=== PATIENT | female | born 1980 | race Caucasian/White ===

== ENCOUNTER 2018-03-28 22:34 | Emergency (ER) | payer SELFPAY ==
[~2018-03-28] VITALS: Ht 170.2 cm; Wt 60.7 kg
[2018-03-29 00:58] VITALS: BP 136/97
== END 2018-03-29 01:01 | disposition home or self-care (01) ==
LOC: EME 22:34
DX: R51 Headache (principal); S80.862A Insect bite (nonvenomous), left lower leg, initial encounter; W57.XXXA Bitten or stung by nonvenomous insect and other nonvenomous arthropods, initial encounter; F17.200 Nicotine dependence, unspecified, uncomplicated; Z91.040 Latex allergy status
CPT/HCPCS: 99281; 99284; J1200; J1885; J2765; J7030